=== PATIENT | male | born 1965 | race Caucasian/White ===

== ENCOUNTER 2022-12-15 09:36 | Observation (INO) ==
[2022-12-15 09:55] LABS: ABS Basophils 0.1 10^3/uL (0.0-0.1); ABS Eosinophils 0.3 10^3/uL (0.0-0.5); ABS Lymphocytes 2.1 10^3/uL (1.0-4.8); ABS Monocytes 0.7 10^3/uL (0.0-1.1); ABS Neutrophils 4.4 10^3/uL (1.5-7.6); ABS Nucleated RBC 0.01 10^3/ul; Eosinophil % 3.4 %; Hematocrit 45.6 % (38-53); Hemoglobin 15.5 g/dL (13.2-16.3); Lymphocyte % 28.4 %; Mean Corpuscular Hemoglobin 29.4 pg (27-33); Mean Corpuscular Hgb Conc 34.1 g/dL (31-36); Mean Platelet Volume 7.7 fL (7.5-11.2); Nucleated Red Blood Cells % 0.1 /100 WBC (0.0-0.4); Platelet Count 326 10^3/uL (150-450); Red Cell Distribution Width 12.8 % (12-17); White Blood Count 7.5 10^3/uL (3.6-10.2)
[2022-12-15 10:05] LABS: INR 1.05 (0.83-1.13)
[2022-12-15 10:24] LABS: Albumin 4.3 g/dL (3.2-5.2); Albumin/Globulin Ratio 1.5 (1-3); Calcium 9.2 mg/dL (8.6-10.3); Creatinine, Serum 0.78 mg/dL (0.67-1.17); Globulin 2.9 g/dL (2-4); Potassium 4.3 mmol/L (3.5-5.0); Total Bilirubin 0.5 mg/dL (0.2-1.0); Total Protein 7.2 g/dL (6.4-8.9); eGFR CKD-EPI 105.3 (>60)
[2022-12-15 11:54] LABS: High Sensitivity Troponin 1 Hr 6 pg/mL (<20)
[2022-12-15 18:56] VITALS: BP 114/65
== END 2022-12-15 19:52 | disposition left against medical advice (07) ==
LOC: EDHOLD 09:36 → ED 09:36 → EDHOLD 18:56
PROVIDERS: ADMIT Internal Medicine; ATTEND Internal Medicine